=== PATIENT | male | born 1955 | race Two or more races ===

== ENCOUNTER 2019-06-29 13:45 | Outpatient (CLI) | payer OTHER ==
[~2019-06-29 13:45] MED LIST: ACTOS; AMARIL; JANUMET 50-1,1 UDTAB PO; LANTUS100 U/ML; LISINOPRIL40 MG; SIMVASTATIN20 MG
== END 2019-06-29 13:50 | disposition home or self-care (01) ==
LOC: SONOGRAMA 13:45
DX: D21.11 Benign neoplasm of connective and other soft tissue of right upper limb, including shoulder (principal)

== ENCOUNTER 2025-07-12 07:12 | Outpatient (CLI) | payer OTHER | END 2025-07-12 07:13 | disposition home or self-care (01) | LOC: SONOGRAMA 07:12 | DX: R10.20 Pelvic and perineal pain unspecified side (principal); Z00.8 Encounter for other general examination ==